=== PATIENT | male | born 1975 | race Hispanic/Latino ===

== ENCOUNTER 2018-04-20 18:39 | Emergency (ER) | payer BC ==
[2018-04-20 18:43] VITALS: BMI 35.9
[2018-04-20 18:49] VITALS: RESP 18
--- NOTE | 2018-04-20 19:53 | ED PDOC ---
Arrival/HPI - General Chief Complaint: Lower Extremity Problem/Injury Historian: Patient - History of Present Illness Narrative History of Present Illness (Text): 04/20/18 19:40 42yo male with no pmhx who present with complaint b/l ankle and foot swelling and pain x 2weeks. States he was [place] [facility] [place] told to f/u with a sql server dba after a negative doppler and blood work with only proteinuria. States he have appointment with a It Compliance Manager tomorrow and Neprhologist on Friday but he couldn't take the pain the any longer so he came to ED. He also report chills, cough, SOB since earlier today. Denies fever, orthopena, CARLOS, nausea, vomiting, abdominal pain, dizziness, any other complaint. Past Medical History - Provider Review Nursing Documentation Reviewed: Yes - Infectious Disease Hx of Infectious Diseases: None - Tetanus Immunization Tetanus Immunization: Unknown - Past Medical History Past Medical History: No Previous - Musculoskeletal/Rheumatological Hx Back Pain: Yes - Gastrointestinal Other/Comment: Back surgery - Psychiatric Hx Substance Use: No - Surgical History Other/Comment: back surgery 4 years ago. fussion screws and rods - Anesthesia Hx Anesthesia Reactions: No Hx Malignant Hyperthermia: No - Suicidal Assessment Feels Threatened In Home Enviroment: No Family/Social History - Physician Review Nursing Documentation Reviewed: Yes Family/Social History: Unknown Family HX Smoking Status: Former Smoker Hx Alcohol Use: No Hx Substance Use: No Hx Substance Use Treatment: No Allergies/Home Meds Allergies/Adverse Reactions: Allergies Penicillins Allergy (Verified 04/20/18 18:46) ANAPHYLAXIS Review of Systems - Physician Review All systems were reviewed & negative as marked: Yes - Review of Systems Constitutional: Normal Eyes: Normal ENT: Normal Respiratory: Normal Cardiovascular: Edema. absent: Calf Pain, CARLOS Gastrointestinal: Normal Genitourinary Male: Normal Musculoskeletal: Arthralgias (B/L foot/ankle) Skin: Normal Neurological: Normal Endocrine: Normal Hemo/Lymphatic: Normal Psychiatric: Normal Physical Exam Vital Signs Reviewed: Yes Vital Signs Temp Pulse Resp BP Pulse Ox 04/20/18 18:40 99.6 F 107 H 18 114/73 97 Temperature: Afebrile Blood Pressure: Normal Pulse: Tachycardic Respiratory Rate: Normal Appearance: Positive for: Well-Appearing, Non-Toxic, Comfortable Pain Distress: None Mental Status: Positive for: Alert and Oriented X 3 - Systems Exam Head: Present: Atraumatic, Normocephalic Pupils: Present: PERRL Extroacular Muscles: Present: EOMI Conjunctiva: Present: Normal Mouth: Present: Moist Mucous Membranes Neck: Present: Normal Range of Motion Respiratory/Chest: Present: Clear to Auscultation, Good Air Exchange. No: Respiratory Distress, Accessory Muscle Use Cardiovascular: Present: Regular Rate and Rhythm, Normal S1, S2. No: Murmurs Abdomen: No: Tenderness, Distention, Peritoneal Signs Back: Present: Normal Inspection Upper Extremity: Present: Normal Inspection. No: Cyanosis, Edema Lower Extremity: Present: Edema (3+ b/l bipedal edema), NORMAL PULSES, Normal ROM, Tenderness (B/L foot/ankle), Neurovascularly Intact. No: CALF TENDERNESS, Erythema, Temperature Abnormalties Neurological: Present: GCS=15, CN II-XII Intact, Speech Normal Skin: Present: Warm, Dry, Normal Color. No: Rashes Psychiatric: Present: Alert, Oriented x 3, Normal Insight, Normal Concentration Medical Decision Making ED Course and Treatment: 04/20/18 22:04 42yo male in ED for b/l ankle/foot swelling and pain. Labs CXR Doppler US reassess Per US tech - Doppler was negative for DVT Lab was reviewed and unremarkable. Trace blood was noted in the urine. No proteinuria like the patient noted. EKG NSR @ 99bpm CXR NAD. cardiomegaly Case was DW Dr. Lopez, pt's PMD. He recommended dose on Lasix in ED and DC with a rx. States pt should keep his appointment with both the It Compliance Manager and the Bandoleer Packer and f/u with him All result was DW the pt. He was instructed to keep his appointment with the specialist and f/u with his PMD. Rx of Lasix 20mg was given He was advised to wear compression stockings and keep legs elevated. He verbalized understanding of the given instructions. - RAD Interpretation Radiology Orders: 04/20/18 19:07 DUPLEX LOWER EXTRM VEIN BILAT [US] Stat 04/20/18 19:08 CHEST PORTABLE [RAD] Stat Disposition/Present on Arrival - Present on Arrival Any Indicators Present on Arrival: No History of DVT/PE: No History of Uncontrolled Diabetes: No Urinary Catheter: No History of Decub. Ulcer: No History Surgical Site Infection Following: None - Disposition Have Diagnosis and Disposition been Completed?: Yes Diagnosis: Edema Disposition: HOME/ ROUTINE Disposition Time: 21:10 Patient Plan: Discharge Patient Problems: Current Active Problems Problem Status Onset Edema Acute Condition: STABLE Discharge Instructions (ExitCare): Dependent Edema (DC) Additional Instructions: Follow up with your Doctor Wear compression stocking and keep feet elevated Return to ED for any new or worsening symptoms Prescriptions: Furosemide [Lasix] 20 mg PO DAILY #7 tab Referrals: Jeb Lopez MD [Primary Care Provider] - Follow up with primary Forms: [employer] ([place])
[2018-04-20 20:22] LABS: BASO # 0.02 K/mm3 (0.0-2.0); BASO % 0.2 % (0.0-3.0); EOS # 0.1 (0.0-0.7); GRAN # 6.38 (1.4-6.5); GRAN % 67.6 % (50.0-68.0); HEMOGLOBIN 13.8 g/dL (14.0-18.0); LYMPH # 2.2 (1.2-3.4); LYMPH % 23.8 % (22.0-35.0); MEAN CELL VOLUME 88.1 fl (80.0-105.0); MEAN CORPUSCULAR HEMOGLOBIN 29.9 pg (25.0-35.0); MEAN PLATELET VOLUME 8.5 fl (7.0-11.0); MONO # 0.7 (0.1-0.6); MONO % 7.4 % (1.0-6.0); RBC 4.61 10^6/uL (3.5-6.1); RED CELL DISTRIBUTION WIDTH 12.9 % (11.5-14.5); WHITE BLOOD COUNT 9.4 10^3/uL (4.5-11.0)
[2018-04-20 20:29] LABS: INR 1.19; PARTIAL THROMBOPLASTIN TIME 30.4 Seconds (25.1-36.5); PROTHROMBIN TIME 13.6 SECONDS (9.4-12.5)
[2018-04-20 20:32] LABS: ALBUMIN 4.1 g/dL (3.0-4.8); ALT/SGPT 48 U/L (7-56); AST/SGOT 45 U/L (17-59); BLOOD UREA NITROGEN 11 mg/dL (7-21); CALCIUM 9.1 mg/dL (8.4-10.5); GFR NON-AFRICAN AMERICAN > 60
[2018-04-20 20:38] LABS: URINE BILIRUBIN NEGATIVE (NEGATIVE); URINE BLOOD TRACE-INTACT (NEGATIVE); URINE GLUCOSE (UA) NEGATIVE (NEGATIVE); URINE LEUKOCYTE ESTERASE NEGATIVE Leu/uL (NEGATIVE); URINE PROTEIN NEGATIVE mg/dL (<30 mg/dL); URINE UROBILINOGEN 0.2 E.U./dL (<1 E.U./dL)
[2018-04-20 20:44] LABS: B-TYPE NATRIURETIC PEPTIDE 184 pg/mL (0-450); TROPONIN I < 0.01 ng/mL
[2018-04-20 20:45] LABS: URINE APPEARANCE CLEAR (CLEAR); URINE COLOR YELLOW (YELLOW)
[2018-04-20 20:50] LABS: URINE RBC 0 - 2 /hpf (0-2); URINE WBC 0 - 2 /hpf (0-6)
[2018-04-20 20:51] LABS: URINE BACTERIA OCC (NEG)
[2018-04-20] MEDS ORDERED: Oxycodone/Acetaminophen 5/325 mg Tab PO STA (20:52)
[2018-04-20 21:52] VITALS: BP 111/69; PULSE 95; TEMP 99; O2SAT 95
--- NOTE | 2018-04-21 09:35 | RAD ---
Date of service: 04/20/2018 HISTORY: SOB/cough COMPARISON: No prior. FINDINGS: LUNGS: No active pulmonary disease. PLEURA: No significant pleural effusion identified, no pneumothorax apparent. CARDIOVASCULAR: No aortic atherosclerotic calcification present. Cardiomegaly appreciated. No pulmonary vascular congestion. OSSEOUS STRUCTURES: No significant abnormalities. VISUALIZED UPPER ABDOMEN: Normal. OTHER FINDINGS: None. IMPRESSION: Cardiomegaly. No pulmonary vascular congestion. No definitive infiltrate bilaterally.
--- NOTE | 2018-04-21 13:49 | US ---
HISTORY: Leg pain and swelling. Evaluate for DVT PHYSICIAN(S): Nik Patel MD. TECHNIQUE: Duplex sonography and color-flow Doppler with graded compression were used to evaluate the deep venous systems of both lower extremities. FINDINGS: The visualized deep venous systems of both lower extremities are sonographically normal and compressible. Normal wave forms and augmentation are seen. There is no sonographic evidence for deep venous thrombosis in the visualized segments of both lower extremities. IMPRESSION: No sonographic evidence for deep venous thrombosis in the visualized segments of both lower extremities.
--- NOTE | 2018-04-21 15:16 | CARD ---
APPROVED REPORT Date of service: 04/20/2018 EKG Measurement Heart [id number] <Conclusion> Normal sinus rhythm Normal ECG
== END 2018-04-20 21:46 | disposition home or self-care (01) ==
LOC: ED 18:39
DX: R60.9 Edema, unspecified (principal)

== ENCOUNTER 2018-04-22 16:41 | Inpatient (IN) | payer BC ==
[2018-04-22 16:55] VITALS: BMI 37.0
--- NOTE | 2018-04-22 17:33 | ED PDOC ---
Arrival/HPI - General Chief Complaint: Lower Extremity Problem/Injury Time Seen by Provider: 04/22/18 16:43 Historian: Patient - History of Present Illness Narrative History of Present Illness (Text): 04/22/18 17:30 A 42 year old male, whose past medical history includes back surgery for herniated discs, arrives to the emergency department sent by Dr. Stanton for swelling to hands/wrists/feet/ankles. Patient reports he has been experiencing pain for the past 2 weeks. Starting 1-2 days ago, along with pain, patient began experiencing swelling. Due to swelling and pain, patient has had difficulty standing/ambulating. Patient states he went to see Dr. Miguel, who told him patient may have cellulitis, and prescribed him antibiotic and water pill. Has taken 2 doses of each medications so far, today and yesterday as per patient. Also, states he saw Dr. Stanton today, who referred him to be seen in the ER for evaluation of symptoms. Patient denies any urinary symptoms, shortness of breath, cough, or any other complaints at this time. PMD: Dr. Jeb Rangel Past Medical History - Provider Review Nursing Documentation Reviewed: Yes - Infectious Disease Hx of Infectious Diseases: None - Tetanus Immunization Tetanus Immunization: Unknown - Past Medical History Past Medical History: No Previous - Musculoskeletal/Rheumatological Hx Back Pain: Yes - Gastrointestinal Other/Comment: Back surgery - Psychiatric Hx Substance Use: No - Surgical History Other/Comment: back surgery 4 years ago. fussion screws and rods - Anesthesia Hx Anesthesia: Yes Hx Anesthesia Reactions: No Hx Malignant Hyperthermia: No - Suicidal Assessment Feels Threatened In Home Enviroment: No Family/Social History - Physician Review Nursing Documentation Reviewed: Yes Family/Social History: No Known Family HX Smoking Status: Former Smoker Hx Alcohol Use: No Hx Substance Use: No Hx Substance Use Treatment: No Allergies/Home Meds Allergies/Adverse Reactions: Allergies Penicillins Allergy (Verified 04/20/18 18:46) ANAPHYLAXIS Home Medications: Home Meds Medication Instructions Recorded Confirmed Amoxicillin/Clavulanate [Augmentin 1 tab PO BID 04/22/18 04/22/18 875 MG-125 MG Tab] Furosemide [Lasix] 40 mg PO DAILY 04/22/18 04/22/18 Review of Systems - Physician Review All systems were reviewed & negative as marked: Yes - Review of Systems Respiratory: absent: SOB Genitourinary Male: absent: Urinary Output Changes Physical Exam - Physical Exam Narrative Physical Exam (Text): Constitutional: No acute distress. Head: Normocephalic. Atraumatic. Eyes: PERRL. ENT: Moist mucous membranes. Neck: Supple. Cardiovascular: Regular rate. Chest: No tenderness. Respiratory: Clear to auscultation bilaterally. GI: Soft. Nontender. Nondistended. Back: No CVA tenderness. Musculoskeletal: No tenderness of extremities. Pitting edema to hands and feet. Skin: No rash. Neurologic: Alert, no focal deficit. Vital Signs Reviewed: Yes Vital Signs Temp Pulse Resp BP Pulse Ox 04/22/18 16:59 98.8 F 107 H 18 116/69 97 Temperature: Afebrile Blood Pressure: Normal Pulse: Regular Respiratory Rate: Normal Appearance: Positive for: Well-Appearing, Non-Toxic, Comfortable Pain Distress: None Mental Status: Positive for: Alert and Oriented X 3 Medical Decision Making ED Course and Treatment: 04/22/18 17:34 Impression: 42 year old male with swelling to hands/feet. Plan: -- EKG -- Chest X-ray -- Labs -- Renal Ultrasound -- Urine Culture -- Urinalysis -- Anti Nuclear Antibody -- Reassess and disposition Prior Visits: Notes and results from previous visits were reviewed. Patient was last seen in the emergency department on 04/20/2018 for left ankle and foot swelling/pain. Patient was discharged home. Progress Notes: EKG: Ordered, reviewed, and independently interpreted the EKG. Rate : 100 BPM Rhythm : NSR Interpretation : No ST-segment elevations or depressions, no T-wave inversions, normal intervals. Comparison : No previous EKG for comparison. 04/22/2018 18:09 Renal Ultrasound FINDINGS: RIGHT KIDNEY: Measures: 10.8 x 5.4 x 5.5 cm. Cortical thinning. No hydronephrosis or obstructing calculus identified. LEFT KIDNEY: Measures: 10.7 x 6.5 x 6.6 cm. Cortical thinning. No hydronephrosis or obstructing calculus identified. OTHER FINDINGS: None. IMPRESSION: Bilateral renal cortical thinning. No hydronephrosis or obstructing calculus identified. Dictator: Dasha Foley MD Accepted for admission by Dr. Lopez for worsening and unexplained peripheral edema which has failed outpatient therapy. - RAD Interpretation Radiology Orders: 04/22/18 17:25 CHEST TWO VIEWS (PA/LAT) [RAD] Stat 04/22/18 17:28 RENAL [US] Stat - Scribe Statement The provider has reviewed the documentation as recorded by the Sean Sutherland Provider Scribe Attestation: All medical record entries made by the Sharronibsarahi were at my direction and personally dictated by me. I have reviewed the chart and agree that the record accurately reflects my personal performance of the history, physical exam, medical decision making, and the department course for this patient. I have also personally directed, reviewed, and agree with the discharge instructions and disposition. Disposition/Present on Arrival - Present on Arrival Any Indicators Present on Arrival: No History of DVT/PE: No History of Uncontrolled Diabetes: No Urinary Catheter: No History of Decub. Ulcer: No History Surgical Site Infection Following: None - Disposition Have Diagnosis and Disposition been Completed?: Yes Diagnosis: Peripheral edema Disposition: HOSPITALIZED Disposition Time: 19:00 Patient Plan: Admission Condition: FAIR
--- NOTE | 2018-04-22 18:12 | US ---
Date of service: 04/22/2018 PROCEDURE: Ultrasound of the Kidneys HISTORY: peripheral edema COMPARISON: None available. TECHNIQUE: Sonogram of the kidneys. FINDINGS: RIGHT KIDNEY: Measures: 10.8 x 5.4 x 5.5 cm. Cortical thinning. No hydronephrosis or obstructing calculus identified. LEFT KIDNEY: Measures: 10.7 x 6.5 x 6.6 cm. Cortical thinning. No hydronephrosis or obstructing calculus identified. OTHER FINDINGS: None. IMPRESSION: Bilateral renal cortical thinning. No hydronephrosis or obstructing calculus identified.
[2018-04-22 18:16] LABS: BASO # 0.02 K/mm3 (0.0-2.0); BASO % 0.2 % (0.0-3.0); EOS # 0.1 (0.0-0.7); EOS % 0.6 % (1.5-5.0); GRAN # 6.52 (1.4-6.5); GRAN % 70.2 % (50.0-68.0); HEMOGLOBIN 13.2 g/dL (14.0-18.0); LYMPH % 21.2 % (22.0-35.0); MEAN CELL VOLUME 88.1 fl (80.0-105.0); MEAN CORPUSCULAR HEMOGLOBIN 29.1 pg (25.0-35.0); MEAN CORPUSCULAR HGB CONC 33.1 g/dl (31.0-37.0); MEAN PLATELET VOLUME 8.6 fl (7.0-11.0); MONO # 0.7 (0.1-0.6); MONO % 7.8 % (1.0-6.0); RBC 4.53 10^6/uL (3.5-6.1); RED CELL DISTRIBUTION WIDTH 12.9 % (11.5-14.5); WHITE BLOOD COUNT 9.3 10^3/uL (4.5-11.0)
[2018-04-22 18:20] LABS: INR 1.2; PARTIAL THROMBOPLASTIN TIME 29.5 Seconds (25.1-36.5); PROTHROMBIN TIME 13.7 SECONDS (9.4-12.5)
--- NOTE | 2018-04-22 18:32 | CARD ---
APPROVED REPORT Date of service: 04/22/2018 EKG Measurement Heart [id number] <Conclusion> Sinus tachycardia Otherwise normal ECG
[2018-04-22 18:37] LABS: ALT/SGPT 53 U/L (7-56); AST/SGOT 58 U/L (17-59); B-TYPE NATRIURETIC PEPTIDE 86.2 pg/mL (0-450); BLOOD UREA NITROGEN 12 mg/dL (7-21); CALCIUM 9.1 mg/dL (8.4-10.5); GFR NON-AFRICAN AMERICAN > 60; HDL CHOLESTEROL 23 mg/dL (29-60); LDL CHOLESTEROL 195 mg/dL (0-129); URIC ACID 8.6 mg/dL (3.5-8.5)
[2018-04-22 21:20] LABS: COMPLEMENT C4 35.5 mg/dL (14.0-44.0)
[2018-04-22 21:43] LABS: HEPATITIS B SURFACE AG Negative (NEGATIVE)
[2018-04-22 21:49] LABS: HEPATITIS A IGM NEGATIVE (NEGATIVE); HEPATITIS B CORE AB NEGATIVE (NEGATIVE)
[2018-04-22 22:01] LABS: HEPATITIS C ANTIBODY NEGATIVE (NEGATIVE)
[2018-04-22 22:24] LABS: URINE BILIRUBIN NEGATIVE (NEGATIVE); URINE BLOOD NEGATIVE (NEGATIVE); URINE GLUCOSE (UA) NEGATIVE (NEGATIVE); URINE LEUKOCYTE ESTERASE NEGATIVE Leu/uL (NEGATIVE); URINE PROTEIN TRACE mg/dL (<30 mg/dL); URINE UROBILINOGEN 0.2 E.U./dL (<1 E.U./dL)
[2018-04-22 22:49] LABS: URINE COLOR YELLOW (YELLOW)
[2018-04-22 22:50] LABS: URINE APPEARANCE CLEAR (CLEAR)
[2018-04-22 22:53] LABS: URINE BACTERIA FEW (NEG); URINE RBC NEGATIVE /hpf (0-2)
[2018-04-23] MEDS ORDERED: Influenza Vaccine 60 mcg/0.5 mL SYR (4YR UP) IM ONE (01:38)
[2018-04-23] MEDS ORDERED: Pneumococcal 23-Valent Vaccine IM ONE (01:38)
--- NOTE | 2018-04-23 08:29 | RAD ---
Date of service: 04/22/2018 HISTORY: peripheral edema COMPARISON: No prior. TECHNIQUE: Chest PA and lateral FINDINGS: LUNGS: There is a small infiltrate in the right middle lobe seen best on the lateral view PLEURA: No significant pleural effusion identified. No pneumothorax apparent. CARDIOVASCULAR: No aortic atherosclerotic calcification present. Moderate cardiomegaly no pulmonary vascular congestion. OSSEOUS STRUCTURES: No significant abnormalities. VISUALIZED UPPER ABDOMEN: Normal. OTHER FINDINGS: None. IMPRESSION: Small infiltrate in the right middle lobe seen best on the lateral view
[2018-04-23] MEDS ORDERED: MethylPREDNISolone 40 mg Vial IVP SCH (10:15)
[2018-04-23] MEDS ORDERED: levoFLOXacin 500 MG TAB PO SCH (10:15)
[2018-04-23 11:40] LABS: BASO # 0.01 K/mm3 (0.0-2.0); BASO % 0.1 % (0.0-3.0); EOS # 0.1 (0.0-0.7); EOS % 1.5 % (1.5-5.0); GRAN # 5.06 (1.4-6.5); GRAN % 68.5 % (50.0-68.0); HEMOGLOBIN 13.3 g/dL (14.0-18.0); LYMPH # 1.7 (1.2-3.4); LYMPH % 22.5 % (22.0-35.0); MEAN PLATELET VOLUME 8.4 fl (7.0-11.0); MONO # 0.6 (0.1-0.6); MONO % 7.4 % (1.0-6.0); RBC 4.58 10^6/uL (3.5-6.1); RED CELL DISTRIBUTION WIDTH 12.9 % (11.5-14.5); WHITE BLOOD COUNT 7.4 10^3/uL (4.5-11.0)
[2018-04-23 11:46] LABS: ALBUMIN 3.9 g/dL (3.0-4.8); ALT/SGPT 51 U/L (7-56); AST/SGOT 49 U/L (17-59); BLOOD UREA NITROGEN 13 mg/dL (7-21); CALCIUM 9.3 mg/dL (8.4-10.5); GFR NON-AFRICAN AMERICAN > 60
--- NOTE | 2018-04-23 11:46 | CP.PCM.CON ---
History of Present Illness - History of Present Illness History of Present Illness: Awake,alert,no distress, denies shortness of breath,denies chest pain Reason for consultation: Cardiac evaluation of leg edema and hand edema Brief history of present illness: A 42 year old male,obese who was sent by Dr Stanton to the ER due to progressively increasing leg edema and hands edema for the past 2 weeks. He went to an home health care coordinator and Ultrasound of the legs was done and claimed results were normal. Due to swelling and pain, patient has had difficulty standing/ambulating. Patient states he went to see Dr. Miguel, who told him patient may have cellulitis, and prescribed him antibiotic and water pill. He saw Dr. Stanton prior to admission and decided to come to the ER for further work up and evaluation. Seen and examined by me and Dr. Berger Review of Systems - Review of Systems All systems: reviewed and no additional remarkable complaints except Review of Systems: as per HPI Past Patient History - Infectious Disease Hx of Infectious Diseases: None - Tetanus Immunizations Tetanus Immunization: Unknown - Past Social History Smoking Status: Former Smoker - MUSCULOSKELETAL/RHEUMATOLOGICAL Hx Falls: No Hx Herniated Disk: Yes Other/Comment: fusion SX - GASTROINTESTINAL Other/Comment: Back surgery - PSYCHIATRIC Hx Substance Use: No - SURGICAL HISTORY Other/Comment: back surgery 4 years ago. fusion screws and rods - ANESTHESIA Hx Anesthesia: Yes Hx Anesthesia Reactions: No Hx Malignant Hyperthermia: No Meds Allergies/Adverse Reactions: Allergies Allergy/AdvReac Type Severity Reaction Status Date / Time Penicillins Allergy ANAPHYLAXIS Verified 04/20/18 18:46 - Medications Medications: Current Medications Diphenhydramine HCl (Benadryl) 25 mg PO HS PRN PRN Reason: Insomnia Last Admin: 04/22/18 23:20 Dose: 25 mg Levofloxacin (Levaquin) 500 mg PO DAILY ERROL; Protocol Last Admin: 04/23/18 11:34 Dose: 500 mg Methylprednisolone (Solu-Medrol) 20 mg IVP Q12 ERROL Last Admin: 04/23/18 11:35 Dose: 20 mg Tramadol HCl (Ultram) 50 mg PO Q6H PRN PRN Reason: Pain, moderate (4-7) Last Admin: 04/22/18 23:20 Dose: 50 mg Physical Exam - Constitutional Appears: Non-toxic, No Acute Distress - Head Exam Head Exam: NORMAL INSPECTION, NORMOCEPHALIC - Eye Exam Eye Exam: Normal appearance Pupil Exam: NORMAL ACCOMODATION - ENT Exam ENT Exam: Mucous Membranes Moist, Normal Exam - Respiratory Exam Respiratory Exam: Clear to Auscultation Bilateral, NORMAL BREATHING PATTERN - Cardiovascular Exam Cardiovascular Exam: +S1, +S2 - GI/Abdominal Exam GI & Abdominal Exam: Normal Bowel Sounds, Soft - Exam Additional comments: continent - Extremities Exam Additional comments: left leg pain, 2+ edema of bilateral legs 2+ hands edema - Neurological Exam Neurological exam: Alert, Oriented x3 - Psychiatric Exam Psychiatric exam: Normal Affect, Normal Mood - Skin Skin Exam: Dry, Normal Color, Warm Results - Vital Signs Recent Vital Signs: Last Vital Signs Temp 98 F 04/23/18 06:00 Pulse 83 04/23/18 06:00 Resp 20 04/23/18 06:00 BP 120/79 04/23/18 06:00 Pulse Ox 96 04/23/18 06:00 - Labs Result Diagrams: 04/23/18 11:25 04/23/18 11:25 Labs: Laboratory Results - last 24 hr 04/22/18 04/22/18 04/22/18 17:55 17:55 17:55 WBC 9.3 RBC 4.53 Hgb 13.2 L Hct 39.9 L MCV 88.1 MCH 29.1 MCHC 33.1 RDW 12.9 Plt Count 461 H MPV 8.6 Gran % 70.2 H Lymph % (Auto) 21.2 L Terrell % (Auto) 7.8 H Eos % (Auto) 0.6 L Baso % (Auto) 0.2 Gran # 6.52 H Lymph # (Auto) 2.0 Terrell # (Auto) 0.7 H Eos # (Auto) 0.1 Baso # (Auto) 0.02 ESR 102 H PT 13.7 H INR 1.20 APTT 29.5 Sodium 134 Potassium 3.6 Chloride 97 L Carbon Dioxide 28 Anion Gap 13 BUN 12 Creatinine 1.1 Est GFR ( Amer) > 60 Est GFR (Non-Af Amer) > 60 Random Glucose 96 Uric Acid 8.6 H Calcium 9.1 Total Bilirubin 0.7 AST 58 ALT 53 Alkaline Phosphatase 97 Total Creatine Kinase 52 NT-Pro-B Natriuret Pep 86.2 Total Protein 7.9 Albumin 4.0 Globulin 4.0 Albumin/Globulin Ratio 1.0 L Triglycerides 135 Cholesterol 242 H LDL Cholesterol Direct 195 H HDL Cholesterol 23 L Urine Color Urine Appearance Urine pH Ur Specific [place] Urine Protein Urine Glucose (UA) Urine Ketones Urine Blood Urine Nitrate Urine Bilirubin Urine Urobilinogen Ur Leukocyte Esterase Urine RBC Urine WBC Ur Epithelial Cells Urine Bacteria Ur Random Creatinine U Random Total Protein Complement C3 Complement C4 Hepatitis A IgM Ab Hep Bs Antigen Hep B Core IgM Ab Hepatitis C Antibody 04/22/18 04/22/18 04/22/18 17:55 17:55 22:19 WBC RBC Hgb Hct MCV MCH MCHC RDW Plt Count MPV Gran % Lymph % (Auto) Terrell % (Auto) Eos % (Auto) Baso % (Auto) Gran # Lymph # (Auto) Terrell # (Auto) Eos # (Auto) Baso # (Auto) ESR PT INR APTT Sodium Potassium Chloride Carbon Dioxide Anion Gap BUN Creatinine Est GFR ( Amer) Est GFR (Non-Af Amer) Random Glucose Uric Acid Calcium Total Bilirubin AST ALT Alkaline Phosphatase Total Creatine Kinase NT-Pro-B Natriuret Pep Total Protein Albumin Globulin Albumin/Globulin Ratio Triglycerides Cholesterol LDL Cholesterol Direct HDL Cholesterol Urine Color Yellow Urine Appearance Clear Urine pH 6.0 Ur Specific [place] >= 1.030 Urine Protein Trace H Urine Glucose (UA) Negative Urine Ketones Negative Urine Blood Negative Urine Nitrate Negative Urine Bilirubin Negative Urine Urobilinogen 0.2 Ur Leukocyte Esterase Negative Urine RBC Negative Urine WBC 2 - 5 Ur Epithelial Cells 1 - 3 Urine Bacteria Few Ur Random Creatinine U Random Total Protein Complement C3 146.0 Complement C4 35.5 Hepatitis A IgM Ab Negative Hep Bs Antigen Negative Hep B Core IgM Ab Negative Hepatitis C Antibody Negative 04/22/18 04/22/18 22:19 22:48 WBC RBC Hgb Hct MCV MCH MCHC RDW Plt Count MPV Gran % Lymph % (Auto) Terrell % (Auto) Eos % (Auto) Baso % (Auto) Gran # Lymph # (Auto) Terrell # (Auto) Eos # (Auto) Baso # (Auto) ESR PT INR APTT Sodium Potassium Chloride Carbon Dioxide Anion Gap BUN Creatinine Est GFR ( Amer) Est GFR (Non-Af Amer) Random Glucose Uric Acid Calcium Total Bilirubin AST ALT Alkaline Phosphatase Total Creatine Kinase NT-Pro-B Natriuret Pep Total Protein Albumin Globulin Albumin/Globulin Ratio Triglycerides Cholesterol LDL Cholesterol Direct HDL Cholesterol Urine Color Urine Appearance Urine pH Ur Specific [place] Urine Protein Urine Glucose (UA) Urine Ketones Urine Blood Urine Nitrate Urine Bilirubin Urine Urobilinogen Ur Leukocyte Esterase Urine RBC Urine WBC Ur Epithelial Cells Urine Bacteria Ur Random Creatinine 279 U Random Total Protein Cancelled 10 Complement C3 Complement C4 Hepatitis A IgM Ab Hep Bs Antigen Hep B Core IgM Ab Hepatitis C Antibody Assessment & Plan - Assessment and Plan (Free Text) Assessment: A 42 year old male,obese who was sent by Dr Stanton to the ER due to progressively increasing leg edema and hands edema for the past 2 weeks. He went to an home health care coordinator and Ultrasound of the legs was done and claimed results were normal. Due to swelling and pain, patient has had difficulty standing/ambulating. Patient states he went to see Dr. Miguel, who told him patient may have cellulitis, and prescribed him antibiotic and water pill. He saw Dr. Stanton prior to admission and decided to come to the ER for further work up and evaluation. History of back surgery 4 years ago with screws and rods. Former smoker. Denies any other medical history. Denies chest pain, denies shortness of breath. Ultrasound of lower extremities 04/20/18 negative for DVT.Chest x ray showed small infiltration right middle lobe. Renal ultrasound showed bilateral renal cortical thinning. Will order Echo to evaluate LV function. Stress test to rule out ischemia, CT of spine to rule out abnormalities,complaining of leg pain and history of back surgery. Plan: Denies shortness of breath Denies chest pain Heart rate controlled Blood pressure controlled LDL elevated will start Lipitor Will order HgbA1c & TSH ECHO to evaluate LV function For Stress test to rule out myocardial ischemia NPO post midnight Will order CT of spine/back without contrast due to leg pain and history of back surgery Further recommendations during hospital course Continue current treatment Continue antibiotics as ordered Will follow up Plan and treatment discussed with Dr. Berger Thank you Dr. Lopez for the opportunity of taking care of Mr. Santos Pino - Date & Time Date: 04/23/18 Time: 07:40
--- NOTE | 2018-04-23 13:27 | CT ---
Date of service: 04/23/2018 PROCEDURE: CT Cervical Spine without contrast HISTORY: history of back surgery COMPARISON: None available. TECHNIQUE: Axial computed tomography images were obtained of the cervical spine without the use of intravenous contrast. Coronal and sagittal reformatted images were created and reviewed. Radiation dose: Total exam DLP = 760.02 mGy-cm. This CT exam was performed using one or more of the following dose reduction techniques: Automated exposure control, adjustment of the mA and/or kV according to patient size, and/or use of iterative reconstruction technique. FINDINGS: VERTEBRAE: No fracture. Normal alignment. No destructive bony lesion. DISCS/SPINAL CANAL/NEURAL FORAMINA: No significant central canal or neural foraminal stenosis. Discs heights are grossly preserved. PARASPINAL SOFT TISSUES: Unremarkable. OTHER FINDINGS: None. IMPRESSION: Unremarkable CT of the cervical spine.
--- NOTE | 2018-04-23 14:49 | CT ---
Date of service: 04/23/2018 PROCEDURE: CT Chest without contrast HISTORY: infiltrate COMPARISON: Chest film 04/22/2018 TECHNIQUE: Contiguous axial images were obtained through the chest without intravenous contrast enhancement. Sagittal and coronal reconstructions were performed. Radiation dose: Total exam DLP = 813.08 mGy-cm. This CT exam was performed using one or more of the following dose reduction techniques: Automated exposure control, adjustment of the mA and/or kV according to patient size, and/or use of iterative reconstruction technique. FINDINGS: LUNGS: 12 x 16 mm nodule in the left apex. 29 mm nodule in the right lower lobe adjacent to the right heart border. This accounts for the density seen on chest x-ray MEDIASTINUM: Unremarkable thoracic aorta. No aneurysm. Normal sized heart. Main pulmonary artery unremarkable. No vascular congestion. There is extensive hilar and mediastinal adenopathy with mediastinal nodes measuring over 2.5 cm in diameter. Subcarinal adenopathy is also seen. No aortic atherosclerotic calcification. PLEURA: No pleural fluid. No pneumothorax. BONES: No fracture. No destructive lesion. UPPER ABDOMEN: Grossly unremarkable. OTHER FINDINGS: None. IMPRESSION: Lung nodules and extensive mediastinal and hilar adenopathy suspicious for pulmonary malignancy.
--- NOTE | 2018-04-23 15:53 | CARD ---
APPROVED REPORT Date of service: 04/23/2018 EXAM: Two-dimensional and M-mode echocardiogram with Doppler and color Doppler. INDICATION LVFX 2D DIMENSIONS Left Atrium (2D)3.9 (1.6-4.0cm)IVSd1.1 (0.7-1.1cm) LVDd4.6 (3.9-5.9cm)PWd1.1 (0.7-1.1cm) LVDs2.9 (2.5-4.0cm)FS (%) 36.9 % LVEF (%)66.9 (>50%) M-Mode DIMENSIONS Aortic Root4.00 (2.2-3.7cm)Aortic Cusp Exc.2.20 (1.5-2.0cm) Aortic Valve AoV Peak Ixtrovdx968.0cm/Jd Peak GR.9mmHg Mitral Valve MV E Zydoicas03.5cm/sMV A Bzmlbfyw70.7cm/sE/A ratio1.2 TDI Lateral E' Peak V11.40cm/sMedial E' Peak V8.77cm/sE/Lateral E'6.6 E/Medial E'8.6 Pulmonary Valve PV Peak Rcwpkrhz61.8cm/sPV Peak Grad.3mmHg Tricuspid Valve TR Peak Cyymdewk409ds/sRAP STIJMPGM62lvJzFB Peak Gr.31mmHg [id number] LEFT VENTRICLE The left ventricle is normal size. There is normal left ventricular wall thickness. The left ventricular function is normal.EF-65% There is normal LV segmental wall motion. The left ventricular diastolic function is normal. No left ventricle thrombus noted on this study. There is no ventricular septal defect visualized. There is no left ventricular aneurysm. There is no mass noted in the left ventricle. RIGHT VENTRICLE The right ventricle is normal size. There is normal right ventricular wall thickness. The right ventricular systolic function is normal. ATRIA The left atrium size is normal. The right atrium size is normal. The interatrial septum is intact with no evidence for an atrial septal defect. AORTIC VALVE The aortic valve is normal in structure. Trivial AR There is no aortic valvular stenosis. There is no aortic valvular vegetation. MITRAL VALVE The mitral valve is thickened but opens well. Mitral regurgitation is trace to mild. There is no mitral valve stenosis. There is no evidence of mitral valve prolapse. TRICUSPID VALVE The tricuspid valve leaflets are thickened , but open well. There is mild to moderate tricuspid regurgitation. There is no tricuspid valve stenosis. There is no tricuspid valve prolapse or vegetation. PULMONIC VALVE The pulmonary valve is normal in structure. There is trace to mild pulmonic valvular regurgitation. There is no pulmonic valvular stenosis. GREAT VESSELS The aortic root is normal in size. The ascending aorta is normal in size. The pulmonary artery is normal. The IVC is normal in size and collapses >50% with inspiration. PERICARDIAL EFFUSION There is no pleural effusion. There is no pericardial effusion. <Conclusion> Normal chamber Size. EF-65% Trivial AR Mitral regurgitation is trace to mild. There is mild to moderate tricuspid regurgitation. There is trace to mild pulmonic valvular regurgitation. The IVC is normal in size and collapses >50% with inspiration. There is no pericardial effusion.
--- NOTE | 2018-04-23 16:49 | CON ---
DATE: 04/23/2018 The patient is seen in 566, bed 3. CHIEF COMPLAINT: Proteinuria times several days. HISTORY OF PRESENT ILLNESS: This is a 42-year-old male with past medical history significant for back surgery, who takes no medication, who has had bilateral lower extremity edema and edema of the hands and was seen by Dr. Stanton as an outpatient. The patient complained of severe fatigue. He has cough, which is nonproductive, no chest pain. He has no fevers, no chills, no headaches, no blurred vision, no neck pain, no abdominal pain, no diarrhea or constipation, no dysuria or frequency, no blood in his urine. PAST MEDICAL HISTORY: Noncontributory. PAST SURGICAL HISTORY: Significant for back surgery for herniated disc. MEDICATIONS AT HOME: The patient takes no medications at home. ALLERGIES: HE IS ALLERGIC TO PENICILLIN. THE TYPE OF ALLERGY IS NOT CLEAR; HE IS TOLD A CHILD BY HIS MOTHER THAT HE IS ALLERGIC. PHYSICAL EXAMINATION: GENERAL: The patient is in bed, in no acute distress. VITAL SIGNS: Temperature of 98, blood pressure is 116/60, respiratory rate of 18 and is up to 20, heart rate of 107, and blood pressure is noted. HEENT: Examination of HEENT is unremarkable. NECK: Supple. LUNGS: Have decreased breath sounds. HEART: Normal S1, S2. ABDOMEN: Soft, nontender. No organomegaly. No rebound. No guarding. EXTREMITIES: Examination of the extremities, there is edema. There is no evidence of cellulitis in both lower extremities, just edema. He does have tinea. On hands, he also has bilateral hand edema. No evidence of cellulitis of the skin. LABORATORY EXAMINATION: Reveals a white count of 9.3, hemoglobin of 13, platelets of 461, 70% granulocytosis, sed rate is 102, coagulation is noted. BUN of 12, creatinine of 1.1, uric acid is 8.1. Urinalysis reveals trace protein and complement level of C4 is 34 and C3 is 146. Hepatitis profile is negative. Urinalysis is noted. Microbiology is pending. Chest x-ray shows a right middle lobe . ASSESSMENT AND PLAN: This is a 42-year-old male with right middle lobe pneumonia with proteinuria; must rule out mycoplasma versus vasculitis, Alexander's versus Goodpasture's; bilateral deep venous thrombosis would be less likely. We will order parvovirus rheumatoid arthritis, anti-neutrophilic cytoplasmic autoantibody vasculitis, and Goodpasture's workup, HIV test, mycoplasma workup with membrane antibody, Dopplers of the lower extremities, CAT scan of the chest, blood cultures, urine cultures, and we will start the patient on doxycycline. The patient is tachycardic and echo has been done, the results are pending, and we will make further recommendations upon availability of initial results. Rubens Clayton MD
--- NOTE | 2018-04-23 17:46 | US ---
Date of service: 04/23/2018 HISTORY: nodes TECHNIQUE: Realtime sonography through the scrotum with color and doppler flow. COMPARISON: None Available. FINDINGS: RIGHT TESTICLE: Measures 4.1 x 1.7 x 2.2 cm. Normal echotexture and flow. RIGHT EPIDIDYMIS: Epididymal head measures 1 x 0.8 x 0.7 cm. There are small cyst seen in the right epididymal head with the largest cyst measures 0.4 x 0.2 centimeter. LEFT TESTICLE: Measures 3.8 x 1.9 x 2.4 cm. Normal echotexture and flow. LEFT EPIDIDYMIS: Epididymal head measures 1.2 x 0.7 x 0.8 cm. There is a small cyst in the left epididymal head measures 0.3 x 0.14 x 0.33 centimeter. HYDROCELE: Trace right-sided hydrocele is seen. VARICOCELE: None. OTHER FINDINGS: None. IMPRESSION: No evidence of testicular torsion. Heterogeneous echotexture of the testicles. Multiple small cyst in both epididymal heads larger and more on the right.
--- NOTE | 2018-04-23 18:25 | CON ---
DATE OF CONSULTATION: 04/23/2018 REASON FOR CONSULTATION: Follow up peripheral edema, cardiac evaluation, progressive edema of the arm. This note is an addition to dictated note by nurse practitioner consult. BRIEF HISTORY: This is a 42-year-old with no significant past medical history, who was sent to the ER because the patient was having edema on both lower extremities, it initially started in the right leg and then the patient over Thanksgiving he developed left-sided edema with a little bit of rash. The patient saw Dr. Miguel, given diuretics and Augmentin. Yesterday, he saw Dr. Stanton and by that time, the patient had increased swelling of upper extremity as well, both arms specifically, sent to the ER. The patient denies having any shortness of breath, any palpitations, difficulty on breathing, or shortness of breath or dyspnea on exertion. PAST MEDICAL HISTORY: As above, nothing significant. FAMILY HISTORY: Nothing significant for coronary artery disease. CURRENT MEDICATIONS: None. Occasionally, the patient takes ibuprofen for headache. Otherwise, no significant medication at home. SOCIAL HISTORY: No significant history of air travel. Denies any history of alcohol abuse. PHYSICAL EXAMINATION: VITAL SIGNS: Height of the patient is 5 feet 10 inches, weight of the patient 258, body mass index 38 kg/m2. Temperature afebrile, heart rate 80, and blood pressure 120/79. HEENT: PERRLA intact. NECK: Supple. No carotid bruit or thyromegaly. CHEST: Clear to auscultation. HEART: S1 and S2 regular. ABDOMEN: Soft. EXTREMITIES: Clubbing and cyanosis negative. LABORATORY DATA: EKG shows sinus tachycardia, rate of 107. Blood workup as follows: WBC 7.5, hemoglobin 13.3, hematocrit 40.3, platelet count 433. Chemistry shows sodium 130, potassium 3.9, chloride 97, carbon dioxide 32, anion gap of , BUN 13, creatinine 1. INR is 1.2. IMPRESSION: A 42-year-old male with no significant past medical history admitted with bilateral lower extremity edema . The patient also denies any chest pain, shortness of breath, any palpitation. RECOMMENDATIONS: We will get echo to assess LV function, lipid profile, TSH. We will also get a stress test to see the systolic function and rule out any ischemia. Also get sed rate to see any connective tissue disorder. We will start low-dose Lipitor because LDL is 195. Further recommendation will be depending upon hospital course. We will follow with you. Thank you, Dr. Miguel, for providing us the opportunity in taking care of the patient, Santos Pino. This note is in addition to dictated note by nurse practitioner, Rima Castillo. Carlotta Berger MD
--- NOTE | 2018-04-23 21:39 | CON ---
DATE: 04/23/2018 REASON FOR CONSULTATION: Lower extremity edema, proteinuria, severe arthralgias. HISTORY OF PRESENTING ILLNESS: A 42-year-old male seen in the office yesterday because of progressive lower extremity edema, severe pain in the ankle joints, severe pain in the wrist joints and a finding of proteinuria and hematuria on urinalysis done in the emergency room in [place] and also in the Urgent Care Center. The patient gave no history of any fevers or chills. The patient reported that this edema started initially with the right foot where he was sitting in the care for 9 hours and noticed his right foot was very tender and swollen and edematous. Subsequently, he went to the Urgent Care and was found to have edema with trace proteinuria, but nothing else. Two days later, came to [place] [facility]. He was found to have hematuria. He was thought to have cellulitis, was given Lasix and Augmentin, but his symptoms did not improve, and in fact, his edema progressed to his left lower extremity and also to his hands, and so he came to see me yesterday. The patient was in severe pain. He was unable to bear weight on his ankles. Unable to stand or move and was directed to the emergency room. So far in the emergency room he is found to have an ESR of 104. The patient was started on Solu-Medrol 20 mg IV every 12 hours. The patient was seen by ID. Started on doxycycline. PAST MEDICAL AND SURGICAL HISTORY: DJD, back surgery 4 years ago, obesity, viral illness 3 weeks ago. FAMILY HISTORY: Noncontributory. SOCIAL HISTORY: No smoking, no alcohol use, no IV drug abuse. ALLERGIES: PENICILLIN. MEDICATIONS AT HOME: Lasix 40 mg started 2 days ago, Augmentin 875 b.i.d., taken two doses so far. REVIEW OF SYSTEMS: All systems are reviewed, pertinent positives are mentioned in history of presenting illness, rest unremarkable. PHYSICAL EXAMINATION: GENERAL: Obese, young male, lying in bed, in moderate distress. VITAL SIGNS: Blood pressure 121/76, heart rate 99, respiratory rate 20, temperature 100.5 this morning. HEENT: Normocephalic, atraumatic, positive pallor. NECK: Supple, no JVD. LUNGS: Bilateral equal air, bilateral equal expansion, no rales, no rhonchi. CARDIAC: S1 and S2, regular rate and rhythm, no murmur, no rub. ABDOMEN: Obese, distended, soft, nontender, bowel sounds present. EXTREMITIES: 1+ pitting edema of the lower extremities, erythema and warmth of the left forefoot. INTAKE AND OUTPUT: Not charted. LABORATORY DATA: WBC 7.4, hemoglobin 13, hematocrit 40, platelets 433. Sodium 38, potassium 3.9, chloride 97, CO2 of 32, BUN 13, creatinine 1.0, glucose 93, calcium 9.3, AST 49, ALT 51, albumin 3.9. Total cholesterol 242, LDL 195. SONJA negative. Complements normal. Hepatitis B and C negative. CT CHEST: Bilateral pulmonary nodules with extensive mediastinal and hilar lymphadenopathy. ASSESSMENT: 1. Progressive edema. 2. Severe arthralgia 3. Low-grade fever. 4. Pulmonary nodules and hilar lymphadenopathy. 5. ?Viral illness. 6. ?Lymphoma. PLAN: 1. Continue empiric antibiotics. 2. Lymph node biopsy?. 3. We will discuss with Dr. Nik Patel, Dr. Lopez, and Dr. Clayton. Harini Stanton MD
--- NOTE | 2018-04-24 07:51 | CP.PCM.PN ---
Subjective - Date & Time of Evaluation Date of Evaluation: 04/24/18 Time of Evaluation: 06:45 - Subjective Subjective: Lying in bed, Awake,alert,no distress, denies shortness of breath,denies chest pain, complaining of leg pain Reason for consultation and follow up : Cardiac evaluation of leg edema and hand edema Seen and examined by me and Dr. Berger Objective - Vital Signs/Intake and Output Vital Signs (last 24 hours): Temp Pulse Resp BP Pulse Ox 98.2 F 94 H 18 131/74 96 04/23/18 21:45 04/23/18 21:45 04/23/18 21:45 04/23/18 21:45 04/23/18 21:45 Intake and Output: 04/24/18 04/24/18 06:59 18:59 Intake Total 120 Balance 120 - Medications Medications: Current Medications Atorvastatin Calcium (Lipitor) 20 mg PO HS ERROL Last Admin: 04/23/18 22:03 Dose: 20 mg Diphenhydramine HCl (Benadryl) 25 mg PO HS PRN PRN Reason: Insomnia Last Admin: 04/22/18 23:20 Dose: 25 mg Doxycycline Hyclate (Doryx) 100 mg PO Q12 ERROL; Protocol Stop: 05/02/18 22:01 Last Admin: 04/23/18 22:03 Dose: 100 mg Tramadol HCl (Ultram) 50 mg PO Q6H PRN PRN Reason: Pain, moderate (4-7) Last Admin: 04/22/18 23:20 Dose: 50 mg Zolpidem Tartrate (Ambien) 5 mg PO HS PRN PRN Reason: Insomnia Last Admin: 04/23/18 22:03 Dose: 5 mg - Labs Labs: 04/23/18 11:25 04/23/18 11:25 PT 13.7 SECONDS (9.4-12.5) H 04/22/18 17:55 INR 1.20 04/22/18 17:55 APTT 29.5 Seconds (25.1-36.5) 04/22/18 17:55 - Constitutional Appears: Non-toxic, No Acute Distress - Head Exam Head Exam: NORMAL INSPECTION, NORMOCEPHALIC - Eye Exam Eye Exam: Normal appearance Pupil Exam: NORMAL ACCOMODATION - ENT Exam ENT Exam: Mucous Membranes Moist - Respiratory Exam Respiratory Exam: Clear to Ausculation Bilateral, NORMAL BREATHING PATTERN - Cardiovascular Exam Cardiovascular Exam: +S1, +S2 - GI/Abdominal Exam GI & Abdominal Exam: Soft, Normal Bowel Sounds - Extremities Exam Additional comments: left leg pain, 2+edema both legs and hands - Neurological Exam Neurological Exam: Alert, Awake, Oriented x3 - Psychiatric Exam Psychiatric exam: Normal Affect, Normal Mood - Skin Skin Exam: Dry, Normal Color, Warm Assessment and Plan - Assessment and Plan (Free Text) Assessment: A 42 year old male,obese who was sent by Dr Stanton to the ER due to progressively increasing leg edema and hands edema for the past 2 weeks. He went to an health care marketing manager and Ultrasound of the legs was done and claimed results were normal. Due to swelling and pain, patient has had difficulty standing/ambulating. Patient states he went to see Dr. Miguel, who told him leigh ann ent may have cellulitis, and prescribed him antibiotic and water pill. He saw Dr. Stanton prior to admission and decided to come to the ER for further work up and evaluation. History of back surgery 4 years ago with screws and rods. Former smoker. Denies any other medical history. Denies chest pain, denies shortness of breath. Ultrasound of lower extremities 04/20/18 negative for DVT.Chest x ray showed small infiltration right middle lobe. Renal ultrasound showed bilateral renal cortical thinning. CT of spine unremarkable. chest CT- lung nodules and extensive mediastinal and hilar adenopathy suspicious of pulmonary malignancy. Plan: Echo done-normal chambers, LVEF 65%, Trivial AR Mild mitral regurgitation,mild to moderate tricuspid regurgitation Mild pulmonic valvular regurgitation CT of spine- unremarkable Hold Stress test, due to leg pain Will reschedule as out patient Denies shortness of breath Denies chest pain Heart rate controlled Blood pressure controlled ID on consult TSH level WNL For lymph node biopsy Continue current treatment Continue antibiotics as ordered Will follow up Plan and treatment discussed with Dr. Berger
[2018-04-24] MEDS ORDERED: Iohexol 240 (50 ml) ONE (10:44)
[2018-04-24] MEDS ORDERED: Midazolam 2 MG/2 ML VIAL ONE (13:54)
[2018-04-24] MEDS ORDERED: Lidocaine 1% Inj (20ml) ONE (13:55)
[2018-04-24] MEDS ORDERED: Midazolam 2 MG/2 ML VIAL IVP ONE (14:20)
--- NOTE | 2018-04-24 14:31 | CT ---
Date of service: 04/24/2018 PROCEDURE: CT Chest, Abdomen and Pelvis with intravenous contrast HISTORY: adenop COMPARISON: Chest CT 04/23/2018 TECHNIQUE: IV dose administered: 150 cc of Omni 350 Radiation dose: Total exam DLP = 1587.7 mGy-cm. This CT exam was performed using one or more of the following dose reduction techniques: Automated exposure control, adjustment of the mA and/or kV according to patient size, and/or use of iterative reconstruction technique. FINDINGS: CT CHEST WITH CONTRAST: LUNGS: There is a 12 x 16 mm nodule in the left upper lobe. There is a 3 cm lung nodule adjacent to the right heart border. MEDIASTINUM: There is extensive hilar and mediastinal adenopathy with nodes ranging in size from 11 to 26 mm in diameter. LYMPH NODES: As above PLEURA: Unremarkable. No pneumothorax. No pleural fluid. BONES: Unremarkable. OTHER FINDINGS: None. CT ABDOMEN AND PELVIS: LIVER: Unremarkable. No gross lesion or ductal dilatation. GALLBLADDER AND BILE DUCTS: Unremarkable. PANCREAS: Unremarkable. No gross lesion or ductal dilatation. SPLEEN: Unremarkable. ADRENALS: Unremarkable. No mass. KIDNEYS AND URETERS: Unremarkable. No hydronephrosis. No solid mass. VASCULATURE: No aortic atherosclerotic calcification or mural plaque present. Unremarkable. No aortic aneurysm. BOWEL: Unremarkable. No obstruction. No gross mural thickening. APPENDIX: Normal appendix. PERITONEUM: Unremarkable. No free fluid. No free air. LYMPH NODES: Unremarkable. No enlarged lymph nodes. BLADDER: Unremarkable. REPRODUCTIVE: Unremarkable. BONES: Previous fusion at L4-5 and L5-S1 OTHER FINDINGS: None. IMPRESSION: Pulmonary nodules with extensive hilar and mediastinal adenopathy. Findings suspicious for a pulmonary malignancy. There is no adenopathy or evidence of a primary malignancy in the abdomen
--- NOTE | 2018-04-24 14:50 | HP ---
DATE OF EXAM: 04/24/2018 CHIEF COMPLAINT: Chills, sweats, joint pain, and swelling in his feet and hands. HISTORY OF PRESENT ILLNESS: This is a 42-year-old male who has a good state of gary, last seen in the office in 2013. Approximately three weeks ago, he had some ankle soreness and mild flu-like symptoms which seemed to have improved. Ten days ago, he had pain in the ankle, went to a local emergency room, ultrasound and x-rays were reported negative. He was told of proteinuria and to contact a renal securities consultant. He scheduled a renal securities consultant but was concerned that both ankles were swollen, so he went to a maintenance chief. Workup was ordered and antibiotic was given for possible cellulitis. He saw the renal securities consultant and they were concerned of acute renal failure. Because of severe ankle pain and swelling, he was advised to come to the emergency room. Lab shows white count to be slightly elevated, his sed rate was elevated. Trace proteinuria was noted on urinalysis. Chest x-ray showed an infiltrate and he was admitted. PAST MEDICAL HISTORY: Significant for lumbar spine surgery. Negative for hypertension, diabetes, tuberculosis, asthma, seizures, gout, coronary artery disease, TIA, CVA, cancers of any type. There were no prior hospitalizations other than the lumbar spine surgery. MEDICATIONS: He did not take any medications at home on a regular basis. ALLERGIES: HE IS THOUGHT TO BE ALLERGIC TO PENICILLIN, BUT RECENTLY TOOK TWO DOSES OF AUGMENTIN WITHOUT EFFECTS. SOCIAL HISTORY: He does not smoke, does not drink alcohol. He is , with 3 young children. REVIEW OF SYSTEMS: Negative except for above mentioned items on the multiple points. PHYSICAL EXAMINATION: GENERAL: The patient was seen this morning in room 566, bed 3, with his at the bedside. He is awake, alert, clear, and sharp. HEAD AND NECK: Unremarkable. Conjunctivae are pink. Mucous membranes are moist. Neck is supple. No JVD present. No carotid bruits. Neck range of motion is good. Neck shows no adenopathy. LUNGS: Show good aeration on right and left and are clear in all lung rojas. HEART: Regular, not tachycardiac. ABDOMEN: Soft, nontender. Liver edge is normal in size and location. Spleen is not palpable. He is moderately overweight. Groin shows good DP and PT pulses with no adenopathy. Axilla shows no adenopathy. EXTREMITIES: With good dorsalis pedis and posterior tibial pulses. The ankles are swollen and somewhat tender. Hands show puffiness of the fingers and swelling of the wrist. CLINICAL IMPRESSION: 1. At the time of seeing morning that this would be a viral pneumonia with slightly elevated white count, markedly elevated sed rate, and polyarthropathy, related to viral infection. Dose of steroid was given and antibiotics to cover any bacterial component that may be involved and I thought later in the day, the patient would be improved clinically and perhaps ready for discharge to home. During course of the day, he was seen by other securities consultant. CT scan of the chest was done, showing the infiltrate and marked mediastinal adenopathy. Interventional radiologist securities consultant was called. Case was discussed by myself with the Infectious Disease securities consultant as well as with Renal. Workup for vasculitis was ordered as well as a CT scan of the abdomen and pelvis to look for further easier sources of adenopathy for biopsy. I returned evening, sat with the patient with lengthy discussion of the detailed involved. I explained that his testicular ultrasound was negative and why such a test would have been ordered. I explained the workup for CT scan of the abdomen. ANKA screen was being drawn while I was visiting evening and the logic behind the CT of the abdomen and pelvis and biopsy. Either way aware biopsy result may not be available, so after the weekend, clinically he has improved with the dose of steroids. He was afebrile with the T-max yesterday of 100.2. 2. Initial suspected viral pneumonia. 3. Mediastinal lymphadenopathy, rule out lymphoma/Hodgkin's disease. 4. Lung infiltrate with adenopathy and proteinuria, rule out vasculitis/Alexander's. PLAN: As outlined above. Doyle Lopez MD MTDAlice
[2018-04-24] MEDS ORDERED: Sodium Chloride 0.45% 1,000 ML IV SCH (15:00)
--- NOTE | 2018-04-24 16:16 | PN ---
DATE: 04/24/2018 SUBJECTIVE: The patient is seen, lying in bed. The patient is en route to mediastinal lymph node biopsy. PHYSICAL EXAMINATION: GENERAL: Young male, lying in bed. VITAL SIGNS: Blood pressure 127/88, heart rate 82, respiratory rate 18, temperature 97.4, T-max is 100.5. HEENT: Normocephalic, atraumatic. No pallor. NECK: Supple, no JVD. LUNGS: Bilateral equal air entry, bilateral rhonchi. CARDIAC: S1, S2, regular rate and rhythm, no murmur, no rub. ABDOMEN: Obese, distended, soft, nontender, bowel sounds present. EXTREMITIES: 2+ pitting edema of the lower extremities, erythema of the front of the left foot. INTAKE AND OUTPUT: Not charted. LABORATORY DATA: WBC 7.4, hemoglobin 13.3, hematocrit 40, platelets 433. HIV nonreactive. Hepatitis profile negative. SONJA negative. ANCA negative. Complements normal. ASSESSMENT: 1. Acute viral syndrome. 2. Viral pneumonia? 3. Hilar and mediastinal lymphadenopathy. 4. Transient proteinuria. 5. Edema. 6. Severe arthralgia. PLAN: 1. The patient is scheduled for a mediastinal biopsy. 2. Continue empiric antibiotics for Mycoplasma pneumonia. 3. Discharge planning after biopsy? 4. Discussed with PMD, Dr. Clayton, and Dr. Nik Patel. Harini Stanton MD
--- NOTE | 2018-04-24 17:41 | RAD ---
Date of service: 04/24/2018 HISTORY: left chest bx COMPARISON: 04/22/2018 chest radiograph. April 24, 2018 CT thorax FINDINGS: LUNGS: No active pulmonary disease. PLEURA: No significant pleural effusion identified, no pneumothorax apparent. CARDIOVASCULAR: No atherosclerotic calcification present Normal. OSSEOUS STRUCTURES: No significant abnormalities. VISUALIZED UPPER ABDOMEN: Normal. OTHER FINDINGS: Abnormal cardiothoracic silhouette consistent with extensive hilar mediastinal adenopathy initially identified on CT scan. IMPRESSION: No active disease. No pneumothorax following CT directed lung biopsy.
--- NOTE | 2018-04-24 17:51 | CT ---
PROCEDURE: CT guided mediastinal lymph node biopsy biopsy. HISTORY: Enlarged mediastinal lymph nodes. Evaluate for lymphoma. PHYSICIAN(S): Nik Patel MD. TECHNIQUE: The relative risks and indications of the procedure were explained to the patient and consent obtained. The patient was placed supine on the CT scanner and preliminary images through the chest obtained. Conscious sedation and monitoring were provided throughout the procedure by a nurse. Enlarged confluent lymph nodes measuring up to 4 cm are seen in the anterior mediastinum adjacent to the aortic arch.. A left parasternal approach was selected and the area prepped and draped in the usual sterile fashion. 1% Xylocaine was used to anesthetize the skin and soft tissues. A 17-gauge guiding needle was advanced into the 3.5 cm enlarged lymph node in the anterior mediastinum. Its position was confirmed with CT. Using coaxial technique, multiple core biopsies were obtained. The postprocedure images show no evidence of significant hemorrhage. IMPRESSION: 1. CT-guided anterior mediastinal lymph node biopsy as described above. Specimens were sent for histology, flow cytometry, and microbiology
--- NOTE | 2018-04-24 22:06 | PN ---
DATE: 04/24/2018 SEX OF THE PATIENT: Male. AGE: 42. TYPE OF DICTATION: Progress note. REFERRING PHYSICIAN: REASON FOR CONSULTATION AND FOLLOW UP: Peripheral edema, cardiac evaluation, progressive edema of the arm, rule out metastatic disease. This note is an addition to dictated note by nurse practitioner. The patient underwent CAT scan of the chest showed lung nodule, extensive mediastinal and hilar adenopathy, suspicious for pulmonary malignancy. CT of the spine was negative. Lower extremity is negative for DVT. Echo yesterday done shows no significant disease, trivial AR, [id number] tricuspid regurgitation, mild pulmonary insufficiency. The patient is scheduled for a stress test, but we want to hold it because the patient needs biopsy, CT-guided, going today. Further recommendations of CT-guided biopsy. Mostly likely, this edema is secondary to lymphadenopathy, causing lymph obstruction. We will follow with you. Thank you Dr. Lopez for providing us the opportunity in taking care of Santos Pino. Carlotta Berger MD
--- NOTE | 2018-04-24 22:09 | CP.PCM.PN ---
Subjective - Date & Time of Evaluation Date of Evaluation: 04/24/18 Time of Evaluation: 09:00 - Subjective Subjective: Feels better, cough is dry and less, still with occasional sweats but generally feeling better, no fevers this morning. Objective - Vital Signs/Intake and Output Vital Signs (last 24 hours): Temp Pulse Resp BP Pulse Ox 98.3 F 98 H 16 121/77 100 04/24/18 15:15 04/24/18 15:15 04/24/18 15:15 04/24/18 15:15 04/24/18 15:15 Intake and Output: 04/24/18 04/25/18 18:59 06:59 Intake Total 200 Balance 200 - Medications Medications: Current Medications Acetaminophen (Tylenol 325mg Tab) 650 mg PO Q4 PRN PRN Reason: Pain, Mild (1-3) Atorvastatin Calcium (Lipitor) 20 mg PO HS ERROL Last Admin: 04/23/18 22:03 Dose: 20 mg Diphenhydramine HCl (Benadryl) 25 mg PO HS PRN PRN Reason: Insomnia Last Admin: 04/22/18 23:20 Dose: 25 mg Doxycycline Hyclate (Doryx) 100 mg PO Q12 ERROL; Protocol Stop: 05/02/18 22:01 Last Admin: 04/24/18 10:59 Dose: 100 mg Ondansetron HCl (Zofran Inj) 4 mg IVP Q6H PRN PRN Reason: Nausea/Vomiting Tramadol HCl (Ultram) 50 mg PO Q6H PRN PRN Reason: Pain, moderate (4-7) Last Admin: 04/22/18 23:20 Dose: 50 mg Zolpidem Tartrate (Ambien) 5 mg PO HS PRN PRN Reason: Insomnia Last Admin: 04/23/18 22:03 Dose: 5 mg - Labs Labs: 04/23/18 11:25 04/23/18 11:25 PT 13.7 SECONDS (9.4-12.5) H 04/22/18 17:55 INR 1.20 04/22/18 17:55 APTT 29.5 Seconds (25.1-36.5) 04/22/18 17:55 - Constitutional Appears: Chronically Ill - Head Exam Head Exam: NORMAL INSPECTION - Respiratory Exam Respiratory Exam: Decreased Breath Sounds - Cardiovascular Exam Cardiovascular Exam: +S1, +S2 - GI/Abdominal Exam GI & Abdominal Exam: Soft. absent: Tenderness Assessment and Plan - Assessment and Plan (Free Text) Plan: Assessment Right middle lobe pneumonia, R/O mycoplasma, R/O vasculitis history of back surgery for herniated disc Plan continue doxycycline pending mycoplasma titers, ANCA, RF will continue to monitor clinically
[2018-04-25 05:46] VITALS: BP 115/75; PULSE 86; RESP 20; TEMP 98.4; O2SAT 97
--- NOTE | 2018-04-25 07:47 | CP.PCM.PN ---
Subjective - Date & Time of Evaluation Date of Evaluation: 04/25/18 Time of Evaluation: 07:20 - Subjective Subjective: Lying in bed, Awake,alert,no distress Reason for consultation and follow up : Cardiac evaluation of leg edema and hand edema Seen and examined by me and Dr. Berger Objective - Vital Signs/Intake and Output Vital Signs (last 24 hours): Temp Pulse Resp BP Pulse Ox 98.4 F 86 20 115/75 97 04/25/18 05:44 04/25/18 05:44 04/25/18 05:44 04/25/18 05:44 04/25/18 05:44 Intake and Output: 04/25/18 04/25/18 06:59 18:59 Intake Total 600 Balance 600 - Medications Medications: Current Medications Acetaminophen (Tylenol 325mg Tab) 650 mg PO Q4 PRN PRN Reason: Pain, Mild (1-3) Atorvastatin Calcium (Lipitor) 20 mg PO HS ERROL Last Admin: 04/24/18 22:41 Dose: 20 mg Diphenhydramine HCl (Benadryl) 25 mg PO HS PRN PRN Reason: Insomnia Last Admin: 04/22/18 23:20 Dose: 25 mg Doxycycline Hyclate (Doryx) 100 mg PO Q12 ERROL; Protocol Stop: 05/02/18 22:01 Last Admin: 04/24/18 22:43 Dose: 100 mg Ondansetron HCl (Zofran Inj) 4 mg IVP Q6H PRN PRN Reason: Nausea/Vomiting Tramadol HCl (Ultram) 50 mg PO Q6H PRN PRN Reason: Pain, moderate (4-7) Last Admin: 04/22/18 23:20 Dose: 50 mg Zolpidem Tartrate (Ambien) 5 mg PO HS PRN PRN Reason: Insomnia Last Admin: 04/23/18 22:03 Dose: 5 mg - Labs Labs: 04/23/18 11:25 04/23/18 11:25 PT 13.7 SECONDS (9.4-12.5) H 04/22/18 17:55 INR 1.20 04/22/18 17:55 APTT 29.5 Seconds (25.1-36.5) 04/22/18 17:55 - Constitutional Appears: Non-toxic, No Acute Distress - Head Exam Head Exam: NORMAL INSPECTION, NORMOCEPHALIC - Eye Exam Eye Exam: Normal appearance Pupil Exam: NORMAL ACCOMODATION - ENT Exam ENT Exam: Mucous Membranes Moist, Normal Exam - Neck Exam Neck Exam: Full ROM - Respiratory Exam Respiratory Exam: Clear to Ausculation Bilateral, NORMAL BREATHING PATTERN - Cardiovascular Exam Cardiovascular Exam: +S1, +S2 - GI/Abdominal Exam GI & Abdominal Exam: Soft, Normal Bowel Sounds - Extremities Exam Extremities Exam: Full ROM Additional comments: 2+edema - Neurological Exam Neurological Exam: Alert, Awake, Oriented x3 - Psychiatric Exam Psychiatric exam: Normal Affect, Normal Mood - Skin Skin Exam: Dry, Normal Color, Warm Assessment and Plan - Assessment and Plan (Free Text) Assessment: A 42 year old male,obese who was sent by Dr Stanton to the ER due to progressively increasing leg edema and hands edema for the past 2 weeks. He went to an career developer and Ultrasound of the legs was done and claimed results were normal. Due to swelling and pain, patient has had difficulty standing/ambulating. Patient states he went to see Dr. Miguel, who told him patient may have cellulitis, and prescribed him antibiotic and water pill. He saw Dr. Stanton prior to admission and decided to come to the ER for further work up and evaluation. History of back surgery 4 years ago with screws and rods. Former smoker. Denies any other medical history. Denies chest pain, denies shortness of breath. Ultrasound of lower extremities 04/20/18 negative for DVT.Chest x ray showed small infiltration right middle lobe. Renal ultrasound showed bilateral renal cortical thinning. CT of spine unremarkable. chest CT- lung nodules and extensive mediastinal and hilar adenopathy suspicious of pulm onary malignancy. Echo done-normal chambers, LVEF 65%, Trivial AR, Mild mitral regurgitation,mild to moderate tricuspid regurgitation, Mild pulmonic valvular regurgitation. Out patient Stress test. post mediastinal lymph node biopsy. Plan: Feels better Post CT guided mediastinal lymph node biopsy yesterday Denies shortness of breath Denies chest pain Will reschedule Stress test as out patient Heart rate controlled Blood pressure controlled ID on consult Continue antibiotics as ordered (pneumonia) Continue current treatment Possible discharge today Will follow up Plan and treatment discussed with Dr. Berger
[2018-04-25 09:18] LABS: GRAN % 64.5 % (50.0-68.0); HEMOGLOBIN 14.1 g/dL (14.0-18.0); MEAN CELL VOLUME 88.5 fl (80.0-105.0); MEAN CORPUSCULAR HEMOGLOBIN 29.6 pg (25.0-35.0); MEAN CORPUSCULAR HGB CONC 33.4 g/dl (31.0-37.0); MEAN PLATELET VOLUME 8.8 fl (7.0-11.0); RBC 4.77 10^6/uL (3.5-6.1); RED CELL DISTRIBUTION WIDTH 13.4 % (11.5-14.5); WHITE BLOOD COUNT 6.1 10^3/uL (4.5-11.0)
[2018-04-25 09:19] LABS: BASO # 0.06 K/mm3 (0.0-2.0); EOS # 0.1 (0.0-0.7); EOS % 1.5 % (1.5-5.0); GRAN # 3.91 (1.4-6.5); LYMPH # 1.5 (1.2-3.4); LYMPH % 24.6 % (22.0-35.0); MONO # 0.5 (0.1-0.6); MONO % 8.4 % (1.0-6.0)
--- NOTE | 2018-04-25 10:30 | PN ---
DATE: 04/25/2018 SUBJECTIVE: The patient is in bed, in no acute distress, nontoxic. PHYSICAL EXAMINATION: VITAL SIGNS: Temperature is 98, blood pressure is 115/70, respiratory rate of 20. HEENT: Unremarkable. NECK: Supple. LUNGS: Have decreased breath sounds. HEART: Normal S1, S2. ABDOMEN: Soft, nontender. LABORATORY EXAMINATION: Reveals a white count of 6, hemoglobin of 14, platelets of 570 and the patient's coagulation is noted. Chemistries reveal as noted, urinalysis is reviewed. Patient's SONJA screen is negative and complement levels are noted. HIV is negative. Hepatitis profile is negative. Microbiology blood cultures, urine cultures are negative and the patient has lung biopsy was done by Dr. Nik Patel, and the patient had a CT scan of the chest and CT scan of the abdomen. Pulmonary nodules, extensive hilar mediastinal adenopathy suspicious for pulmonary malignancy. CT of the abdomen is reported to be negative. No liver metastases, gallbladder, pancreas unremarkable and that is with IV and p.o. contrast. Testicular ultrasound was done, no evidence of portion multiple cysts. ASSESSMENT AND PLAN: A 42-year-old male with a right middle lobe pneumonia with multiple pulmonary and hilar adenopathy, Hodgkin lymphoma versus non-Hodgkin's versus malignancy is in the differential diagnosis. Awaiting for pathology status post CT-guided biopsy. The patient does have a normal LDH and currently on doxycycline. We will follow with you. Rubens Clayton MD
--- NOTE | 2018-04-25 11:16 | PN ---
DATE: 04/25/2018 REASON FOR CONSULTATION: Cardiac evaluation, edema of the lower extremity, rule out CA lung. SUBJECTIVE: CT chest shows mediastinal hilar lymphadenopathy and suspicious of malignancy. Echo shows ejection fraction 65%, trivial AR, [id number] tricuspid regurgitation, and mild pulmonary insufficiency. The patient yesterday underwent CT-guided lung biopsy. Patient was sent for flow cytometry and most likely his symptoms of edema of the lower extremity secondary to lymphadenopathy. ASSESSMENT AND PLAN: Continue atorvastatin. Possible discharge and followup result as an outpatient. We will consider stress test as outpatient for risk stratification. Thank you for providing us the opportunity in taking care of the patient, Santos Pino. Carlotta Berger MD
--- NOTE | 2018-04-25 19:51 | PN ---
DATE: 04/25/2018 SUBJECTIVE: The patient is seen sitting in a chair. He is awake, he is alert, he is comfortable. He reports feeling much better clinically and that he had no edema now. No pain. He is able to stand and walk. PHYSICAL EXAMINATION: GENERAL: Young male sitting in chair. VITAL SIGNS: Blood pressure 115/75, heart rate 86, respiratory rate 27, and temperature 98.4. HEENT: Normocephalic, atraumatic, positive pallor. NECK: Supple, no JVD. LUNGS: Bilateral equal air entry, bilateral equal air expansion, no rales. CARDIAC: S1 and S2, regular rate and rhythm, no murmur, no rub. ABDOMEN: Obese, soft, nontender, bowel sounds present. EXTREMITIES: No lower extremity edema. LABORATORY DATA: WBC 6.1, hemoglobin 14, hematocrit 42, platelets 570. Sodium 138, potassium 3.9, chloride 97, CO2 32, BUN 13, creatinine 1.0, glucose 93, calcium 9.3, A1c 5.3, uric acid 8.6. Blood cultures no growth. Urine culture no growth. The patient had a lung biopsy done yesterday. ASSESSMENT: 1. Acute viral syndrome? 2. Viral pneumonia. 3. Lymphoma? With extensive hilar and mediastinal lymphadenopathy. PLAN: 1. Discontinue steroids. 2. Continue doxycycline. 3. Discharge planning. 4. Discussed with Dr. Lopez and Dr. Clayton. Harini Stanton MD
--- NOTE | 2018-04-25 22:03 | PN ---
DATE: 04/24/2018 The patient was seen this Friday morning in room 566, bed 3. I sat with him and spoke to him again at great length, reviewing the case and all of his findings so far. We spoke at length last night. Today, again I explained the procedure scheduled. He is scheduled for a biopsy of the lung lesion. Most likely, we will go for a mediastinal node, but I talked with Dr. Patel, we will get a CT scan of the abdomen first to see if there is any easier node for biopsy. The patient was then informed, and aware as well as aware of the risks including bleeding, infection, and anesthesia. We will follow closely. Case was discussed at length with Dr. Stanton as well as Dr. Patel. Doyle Lopez MD MTDAlice
--- NOTE | 2018-04-26 00:23 | DS ---
HISTORY OF PRESENT ILLNESS: This is a 42-year-old man in a good state of health, last seen in the office approximately 4 years ago. Did develop ankle soreness and flu-like symptoms. The patient seen in a local emergency room outpost. Venous Dopplers and x-rays were negative. He was in some proteinuria, was noted and he was recommended to contact renal business objects consultant. He saw appointment coordinator for bilateral ankle swelling and pain, was given antibiotics suspicious for cellulitis. Symptoms worsened and he saw the renal business objects consultant and was advised admission because of the pain and inability to stand. PAST MEDICAL HISTORY: Significant only for lumbar spine surgery, he was not taking any medicines, thought to be ALLERGIC TO PENICILLIN, but took 2 doses of Augmentin without any allergic reaction. SOCIAL HISTORY: He does not smoke or drink. COURSE OF HOSPITAL STAY: He was seen by Renal, who suggested he come to the emergency room. On his initial labs, his white count was slightly elevated and leukocyte was noted on chest x-ray. Renal business objects consultant requested an Infectious Disease business objects consultant who ordered a CT scan of the lung for this apparent uncomplicated, unremarkable, viral pneumonia. Surprisingly, that CAT scan of lung showed large mediastinal adenopathy, which began the extensive workup including ANCA, SONJA which were negative, CT scan of the abdomen which was unremarkable, testicular ultrasound which was negative. He was treated with antibiotics, was initially given a dose of steroids because of the suspected viral pneumonia, with polyarthralgias to which he responded very nicely. There was an obvious need for biopsy as tissue diagnosis was needed to be made. Biopsy was performed by Dr. Nik Patel on 04/24/2018. The patient tolerated the procedure well with no bleeding, no hemothorax. The next morning, his labs were acceptable and his H and H was stable. His sed rate had declined from 102 to 70 after the single dose of steroids. He was ready for discharge to home on doxycycline and no other medicines. He will call me in the office with any questions or complications. He will follow up with me on Friday or when the path report is available. He is well aware of our concerns at lymphoma or other type malignancies etc, and was ready for discharge today Friday04/25/2017, the patient's birthday. FINAL DISCHARGE DIAGNOSES: 1. Mediastinal adenopathy with fever and polyarthralgia. 2. Pathology and final diagnosis pending yesterday's biopsy. Doyle Lopez MD MTDD
[2018-04-27 13:54] LABS: PARVOVIRUS B19 AB (IGG) 8.1 (<0.9); PARVOVIRUS B19 AB (IGM) 0.2 (<0.9)
== END 2018-04-25 16:50 | disposition home or self-care (01) | DRG 802 ==
LOC: ED 16:41 → ERH 19:03 → 5RNO 22:23
PROVIDERS: ADMIT Internal Medicine; ATTEND Internal Medicine
PROC: 07B73ZX Excision of Thorax Lymphatic, Percutaneous Approach, Diagnostic (ICD-10-PCS; principal; 2018-04-24 15:00)
DX: R59.0 Localized enlarged lymph nodes (principal); J12.9 Viral pneumonia, unspecified; C34.90 Malignant neoplasm of unspecified part of unspecified bronchus or lung; C85.90 Non-Hodgkin lymphoma, unspecified, unspecified site; L92.8 Other granulomatous disorders of the skin and subcutaneous tissue; E66.9 Obesity, unspecified; M13.0 Polyarthritis, unspecified; Z87.891 Personal history of nicotine dependence; Z68.37 Body mass index [BMI] 37.0-37.9, adult; I08.1 Rheumatic disorders of both mitral and tricuspid valves

== ENCOUNTER 2018-05-25 07:04 | Outpatient (CLI) | payer BC | END 2018-05-27 07:05 | disposition home or self-care (01) | LOC: RAD 07:04 | DX: J45.909 Unspecified asthma, uncomplicated (principal) ==